=== PATIENT | male | born 1970 | race Caucasian/White ===

== ENCOUNTER → 2018-09-05 | Day surgery (SDC) | payer BC ==
[~2018-09-05] MED LIST: ADDERALL 30 MG30 MG PO; BENTYL10 MG PO; FENTANYL CITRATE/PF 100MCG/2 ML INJ ONE; KENALOG-1010 MG/1 ML RC; LEVAQUIN500 MG PO; LOSARTAN POTASS25 MG PO; LOSARTAN POTASS50 MG PO; MIDAZOLAM HCL 2 MG/2 ML VIAL ONE; NORCO 7.5-3251 EACH PO; PANTOPRAZOLE SO40 MG PO; PROPOFOL IV EMULSION 10 MG/ML 50 ML VIAL ONE; PROTONIX20 MG PO; SURFAK240 MG PO
[2018-09-05 14:25] VITALS: BP 116/83
--- NOTE | 2018-09-05 14:35 | Operative Report ---
DATE OF PROCEDURE: September 05, 2018 REFERRING PHYSICIAN: Dr. Darrin Miller. PROCEDURE PERFORMED: Esophagogastroduodenoscopy with esophageal dilatation and biopsies. INDICATIONS FOR ESOPHAGOGASTRODUODENOSCOPY: Dysphagia. MEDICATION: Patient was done under MAC. Please see anesthesiologist's note. PROCEDURE: With the patient in the left lateral decubitus position, the flexible fiberoptic Olympus gastroscope was introduced into the esophagus under direct visualization without any difficulty. An approximately 4 mm nodule was noted in the cervical esophagus that was biopsied. There was some patchy erythema noted in the distal esophagus. A mild stricture was noted at the GE junction, and that was dilated to size 52-[place]. The scope was then advanced with ease into the stomach. Mucosa overlying the antrum and the body revealed some patchy areas of erythema. Some hyperplastic-appearing polyps were noted in the body of the stomach, and some were partially excised with the cold biopsy forceps. Pylorus appeared to be of normal contour and shape, was intubated with ease, and the scope was advanced all the way to the 2nd portion of the duodenum. A minute polyp was biopsied from the proximal 2nd portion. The mucosa overlying the duodenal bulb appeared to be within normal limits. The scope was then withdrawn back into the stomach and retroflexed, and mucosa overlying the fundus and the cardia grossly appeared to be within normal limits. The scope was then straightened out. It was subsequently withdrawn. Patient tolerated procedure well. IMPRESSION: 1. Approximately 4 mm nodule, cervical esophagus, biopsied. 2. Distal esophagitis, mild. 3. Mild stricture at gastroesophageal junction dilated to size 52-[place]. 4. Gastritis, mild. 5. Gastric polyps, body, hyperplastic- appearing. Some partially excised with the cold biopsy forceps. 6. Duodenal nodule, minute, proximal 2nd portion, biopsied. PLAN: Follow up histology. Continue Protonix 40 mg 1 p.o. a.c. b.i.d. Job#: [id number] EV cc:DARRIN MILLER MD
== END | disposition home or self-care (01) ==
LOC: OR 10:02
PROVIDERS: ATTEND Internal Medicine Gastroenterology
DX: R13.10 Dysphagia, unspecified (principal); K22.2 Esophageal obstruction; K31.7 Polyp of stomach and duodenum; K21.0 Gastro-esophageal reflux disease with esophagitis; G47.33 Obstructive sleep apnea (adult) (pediatric); K29.70 Gastritis, unspecified, without bleeding; I10 Essential (primary) hypertension; Z88.0 Allergy status to penicillin
CPT/HCPCS: 43239; 43450; 93005; J2250

== ENCOUNTER → 2019-07-05 | Day surgery (SDC) | payer BC ==
[~2019-07-05] MED LIST changes: +DIPHENHYDRAMINE HCL INJ 50 MG/ML VIAL ONE; +EVEKEO PO; +GLUCAGON FOR INJ 1 MG VIAL ONE; +HYOSCYAMINE 0.125 MG TAB ONE; +MYDAYIS PO; +ONDANSETRON HCL INJ 2MG/ML 2ML 2 MG/ML VIAL ONE; +PROMETHAZINE HCL (IM) 25 MG/ML VIAL ONE; +SUCRALFATE1 GM PO
[2019-07-05 16:45] VITALS: BP 103/72
--- NOTE | 2019-07-05 17:07 | Operative Report ---
DATE OF PROCEDURE: 07/05/2019 SURGEON: Remberto Desai MD PROCEDURES: Esophagogastroduodenoscopy with esophageal dilatation and biopsies as well as a colonoscopy with polypectomy. INDICATIONS FOR COLONOSCOPY: Dysphagia. 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 MEDICATIONS: The patient was done under MAC, please see anesthesiologist's note. PROCEDURE IN DETAIL: With the patient in left lateral decubitus position a flexible fiberoptic Olympus gastroscope was introduced into the esophagus under direct visualization without any difficulty. There was some patchy erythema noted in distal esophagus. A mild stricture was noted at the GE junction that was dilated to size 52-[place]. The scope was then advanced with ease into the stomach. Mucosa overlying the antrum and the body revealed some patchy erythema and [id number] edema. Biopsies were obtained and sent to stain for H pylori. There was a single polyp of approximately 8 mm in size, midbody greater curvature was partially excised with the cold biopsy forceps. The pylorus was of normal contour and shape, it was intubated with ease and the scope was advanced all the way to the second portion of the duodenum. A minute nodule was noted in the proximal second portion and that was biopsied. Mucosa overlying the duodenal bulb appeared to be within normal limits. The scope was then withdrawn back into the stomach and retroflexed mucosa overlying the fundus and cardia appeared to be within normal limits. The scope was then straightened out, it was subsequently withdrawn. The patient tolerated the procedure well. Of note, minute nodule was noted in the cervical esophagus on the way out and that was biopsied. IMPRESSION: 1. Minute nodule, cervical esophagus, biopsied. 2. Mild distal esophagitis. 3. Esophageal stricture at GE junction, dilated to size 52-[place] U[place]. 4. Gastritis, biopsied. Biopsies sent to stain for Helicobacter pylori. 5. Gastric polyp, greater curvature, midbody, partially excised with the cold biopsy forceps. 6. Minute nodule, proximal second portion of duodenum, biopsied. PLAN: Follow up histology. Increase Protonix to 40 mg one p.o. a.c. b.i.d. PROCEDURE IN DETAIL: The patient was then turned around after adequate lubrication of the anal canal. Flexible fiberoptic Olympus colonoscope was inserted into the rectum with ease and advanced all the way to the cecum. Prep overall was suboptimal with some retained stools in the colon. Visualization was fair. The scope was then withdrawn slowly and whatever was visualized the mucosa overlying the cecum, ascending colon, transverse colon grossly appeared to be within normal limits. There was some scattered diverticular disease noted. One minute polyp was hot biopsied from the descending colon as well as an additional polyp from the sigmoid colon and also diverticular disease was noted in the descending and the sigmoid. The rectum grossly appeared to be within normal limits. The scope was then retroflexed into the distal rectum and minute nodule was noted just distal to the dentate line. It was removed per the cold biopsy forceps. The scope was then straightened out, it was subsequently withdrawn. The patient tolerated the procedure well. IMPRESSION: 1. Suboptimal prep. 2. Diverticulosis. 3. Descending colon polyp, hot biopsied. 4. Sigmoid colon polyp, hot biopsied. 5. Minute rectal nodule biopsy, biopsied. PLAN: Follow up histology. Initiate high-fiber, low-fat diet. Initiate high-fiber supplement. The patient might need a followup colonoscopy in 3 to 5 years. MD HARJIT De Jesus/RAMESH /[id number] cc: Darrin Miller
== END | disposition home or self-care (01) ==
LOC: OR 11:26
PROVIDERS: ATTEND Internal Medicine Gastroenterology
DX: Z12.11 Encounter for screening for malignant neoplasm of colon (principal); K63.5 Polyp of colon; K31.7 Polyp of stomach and duodenum; K29.60 Other gastritis without bleeding; K22.2 Esophageal obstruction; K20.8 Other esophagitis; K21.9 Gastro-esophageal reflux disease without esophagitis; K22.8 Other specified diseases of esophagus; K58.9 Irritable bowel syndrome, unspecified; K31.89 Other diseases of stomach and duodenum; K57.30 Diverticulosis of large intestine without perforation or abscess without bleeding; K62.89 Other specified diseases of anus and rectum; G47.33 Obstructive sleep apnea (adult) (pediatric); I10 Essential (primary) hypertension; F90.9 Attention-deficit hyperactivity disorder, unspecified type; Z88.0 Allergy status to penicillin; Z01.810 Encounter for preprocedural cardiovascular examination; Z68.35 Body mass index [BMI] 35.0-35.9, adult; Z80.0 Family history of malignant neoplasm of digestive organs
CPT/HCPCS: 43239; 43450; 45380; 45384; 93005; J1200; J1610; J2250; J2405; J2550; J2704; J3010

== ENCOUNTER → 2020-08-22 | Day surgery (SDC) | payer BC, OTHER ==
[~2020-08-22] MED LIST changes: +DEXAMETHASONE SOD PHOS 10 MG/1 ML VIAL ONE; -DIPHENHYDRAMINE HCL INJ 50 MG/ML VIAL ONE; -GLUCAGON FOR INJ 1 MG VIAL ONE; -HYOSCYAMINE 0.125 MG TAB ONE; +IOPAMIDOL 200 MG/ML 20 ML VIAL IT ONE; +LIDOCAINE HCL 1% 30ML-PF VIAL ONE; +LIDOCAINE HCL 2% LOCAL INJ 5 ML SDV VIAL INJ ONE; -ONDANSETRON HCL INJ 2MG/ML 2ML 2 MG/ML VIAL ONE; -PROMETHAZINE HCL (IM) 25 MG/ML VIAL ONE; +PROPOFOL IV EMULSION 10 MG/ML 20 ML VIAL ONE; -PROPOFOL IV EMULSION 10 MG/ML 50 ML VIAL ONE
[2020-08-22 07:45] VITALS: BP 146/89
== END | disposition home or self-care (01) ==
LOC: OR 06:41
PROVIDERS: ATTEND Physical Medicine & Rehabilitation Pain Medicine
DX: M54.16 Radiculopathy, lumbar region (principal); I10 Essential (primary) hypertension; Z88.0 Allergy status to penicillin; Z01.810 Encounter for preprocedural cardiovascular examination; Z01.812 Encounter for preprocedural laboratory examination; Z11.59 Encounter for screening for other viral diseases
CPT/HCPCS: 64483; 64484; 93005; J1100; J2001 ×2; J2250; J2704; J3010; Q9967; U0002; 77003

== ENCOUNTER → 2020-10-07 | Outpatient (RCR) | payer BC ==
[~2020-10-07] MED LIST changes: -DEXAMETHASONE SOD PHOS 10 MG/1 ML VIAL ONE; -FENTANYL CITRATE/PF 100MCG/2 ML INJ ONE; -IOPAMIDOL 200 MG/ML 20 ML VIAL IT ONE; -LIDOCAINE HCL 1% 30ML-PF VIAL ONE; -LIDOCAINE HCL 2% LOCAL INJ 5 ML SDV VIAL INJ ONE; -MIDAZOLAM HCL 2 MG/2 ML VIAL ONE; -PROPOFOL IV EMULSION 10 MG/ML 20 ML VIAL ONE
== END ==
LOC: PT 09:04
PROVIDERS: ATTEND Neurological Surgery
DX: M51.17 Intervertebral disc disorders with radiculopathy, lumbosacral region (principal)

== ENCOUNTER 2020-10-23 09:00 | Outpatient (RCR) | payer BC | END 2020-11-07 | LOC: PT 09:00 | PROVIDERS: ATTEND Neurological Surgery | DX: M51.17 Intervertebral disc disorders with radiculopathy, lumbosacral region (principal) ==

== ENCOUNTER → 2024-11-27 | Day surgery (SDC) | payer BC ==
[~2024-11-27] MED LIST changes: +ADDERALL XR 2525 MG PO; +BENICAR20 MG PO; +EPHEDRINE SULFATE INJ 50 MG/ML VIAL ONE; +FENTANYL CITRATE/PF 100MCG/2 ML INJ ONE; +GLUCAGON FOR INJ 1 MG VIAL ONE; +HYOSCYAMINE SULFATE 0.5 MG/ML INJ ONE; +LIDOCAINE HCL 2% LOCAL INJ 5 ML SDV VIAL INJ ONE; +METOCLOPRAMIDE HCL 10 MG/2ML VIAL ONE; +OZEMPIC1 MG/0.71 SC; +PROPOFOL IV EMULSION 10 MG/ML 20 ML VIAL ONE; +PROPOFOL IV EMULSION 50 ML IV ONE
[2024-11-27] MEDS: LACTATED RINGER'S 1,000 ML ONE (07:19)
[2024-11-27 09:04] VITALS: BP 126/72; PULSE 76; RESP 17; O2SAT 98
[2024-11-27 12:41] LABS: CDIFF AG QUIK CHEK NEGATIVE (NEGATIVE); CDIFF TOX QUIK CHEK NEGATIVE (NEGATIVE)
[2024-11-30 06:52] LABS: C-REACTIVE PROTEIN 1 mg/L (0-10)
[2024-12-01 17:09] LABS: ENDOMYSIAL ANTIBODIES, IGA Negative (Negative)
[2024-12-01 17:54] LABS: IMMUNOGLOBULIN A 110 mg/dL (90-386); TISSUE TRANSGLUTAMINASE IGA AB <2 U/mL (0-3)
== END | disposition home or self-care (01) ==
LOC: OR 06:20
PROVIDERS: ATTEND Internal Medicine Gastroenterology
DX: K29.70 Gastritis, unspecified, without bleeding (principal); D12.2 Benign neoplasm of ascending colon; D12.4 Benign neoplasm of descending colon; K20.90 Esophagitis, unspecified without bleeding; K21.9 Gastro-esophageal reflux disease without esophagitis; K58.9 Irritable bowel syndrome, unspecified; R19.7 Diarrhea, unspecified; K57.30 Diverticulosis of large intestine without perforation or abscess without bleeding; K59.00 Constipation, unspecified; I10 Essential (primary) hypertension; F90.9 Attention-deficit hyperactivity disorder, unspecified type; Z87.19 Personal history of other diseases of the digestive system; G47.33 Obstructive sleep apnea (adult) (pediatric); E66.9 Obesity, unspecified; M06.9 Rheumatoid arthritis, unspecified; M19.90 Unspecified osteoarthritis, unspecified site; Z88.0 Allergy status to penicillin; Z01.810 Encounter for preprocedural cardiovascular examination; Z79.85 Long-term (current) use of injectable non-insulin antidiabetic drugs; Z79.899 Other long term (current) drug therapy; Z68.34 Body mass index [BMI] 34.0-34.9, adult
CPT/HCPCS: 43239; 43450; 45385; 82784; 83516; 83630; 83993; 86140; 86256; 87045; 87177; 87324; 87328; 87449; 93005; J1610; J1980; J2003; J2470; J2704 ×2; J2765; J3010; J7121; 45378

== ENCOUNTER → 2025-06-20 | Day surgery (SDC) | payer BC ==
[~2025-06-20] MED LIST changes: -EPHEDRINE SULFATE INJ 50 MG/ML VIAL ONE; -FENTANYL CITRATE/PF 100MCG/2 ML INJ ONE; -GLUCAGON FOR INJ 1 MG VIAL ONE; -METOCLOPRAMIDE HCL 10 MG/2ML VIAL ONE; -PROPOFOL IV EMULSION 10 MG/ML 20 ML VIAL ONE
[2025-06-20] MEDS: LACTATED RINGER'S 1,000 ML ONE (09:51)
[2025-06-20 12:45] VITALS: BP 129/80; PULSE 76; RESP 16; O2SAT 99
== END | disposition home or self-care (01) ==
LOC: OR 09:22
PROVIDERS: ATTEND Internal Medicine Gastroenterology
DX: K59.00 Constipation, unspecified (principal); D12.2 Benign neoplasm of ascending colon; K57.30 Diverticulosis of large intestine without perforation or abscess without bleeding; K58.9 Irritable bowel syndrome, unspecified; K64.8 Other hemorrhoids; K25.9 Gastric ulcer, unspecified as acute or chronic, without hemorrhage or perforation; K21.9 Gastro-esophageal reflux disease without esophagitis; G47.33 Obstructive sleep apnea (adult) (pediatric); I10 Essential (primary) hypertension; Z88.0 Allergy status to penicillin; Z01.810 Encounter for preprocedural cardiovascular examination; Z79.85 Long-term (current) use of injectable non-insulin antidiabetic drugs; Z79.899 Other long term (current) drug therapy
CPT/HCPCS: 45385; 93005; J1980; J2003